=== PATIENT | male | born 1955 | race American Indian/Alaskan Native ===

== ENCOUNTER 2018-12-18 12:50 | Observation (INO) | payer MEDICARE ==
--- NOTE | 2018-12-11 12:56 | Anesthesia Consultation ---
Anesthesia Consult and Med Hx Date of service: 12/11/18 - Airway Anesthetic Teeth Evaluation: Edentulous ROM Head & Neck: Adequate Mental/Hyoid Distance: Adequate Mallampati Class: Class II Intubation Access Assessment: Probably Good - Pulmonary Exam CTA: Yes - Cardiac Exam Cardiac Exam: RRR - Pre-Operative Health Status ASA Pre-Surgery Classification: ASA3 Proposed Anesthetic Plan: General - Pulmonary Hx Smoking: Yes (STOPPED X 25 YRS) Hx Sleep Apnea: Yes (DX SLEEP APNEA , NO CPAP USE.) - Cardiovascular System Hx Hypertension: No - Endocrine Hx End Stage Renal Disease: Yes (MWF dialysis; plan is to have dialysis day before and labs DOS ) - Hematic Hx Anemia: No - Other Systems Hx Substance Use: Yes (MARIJUANA & COCAINE ABUSE- CLEAN X 26 YRS) - Additional Comments Anesthesia Medical History Comments: no BP/IV on nothing on R side (location of AV fistula)
[~2018-12-18 12:50] MED LIST: GENTAMICIN IV ONE; GENTAMICIN IV SCH; NACL 0.9% IV ONE; NACL 0.9% IV SCH; VANCOMYCIN 1,500 MG in NACL 0.9% 500 ML 500 ML IV ONE; VANCOMYCIN 1,500 MG in NACL 0.9% 500 ML 500 ML IV SCH; VANCOMYCIN/NS 1 GM/250 ML 1 GM/250 ML BAG IV SCH
[2018-12-18 13:55] LABS: Basophils % (Auto) 0.5 % (0.0-1.8); Eosinophils # (Auto) 0.6 K/mm3 (0.0-0.4); Hematocrit 34.3 % (35.5-45.6); Lymphocytes # (Auto) 1.1 K/mm3 (1.2-5.4); Lymphocytes % (Auto) 19.5 % (13.4-35.0); Mean Corpuscular HGB Conc 32 % (32-34); Mean Corpuscular Volume 88 fl (84-94); Monocytes # (Auto) 0.4 K/mm3 (0.0-0.8); Monocytes % (Auto) 6.8 % (0.0-7.3); Platelet Count 245 K/mm3 (140-440); Red Cell Distribution Width 16.1 % (13.2-15.2)
[2018-12-18] MEDS ORDERED: NACL 0.9% IV SCH (14:05)
[2018-12-18 14:06] LABS: Albumin 3.7 g/dL (3.9-5)
[2018-12-18] MEDS ORDERED: NACL 0.9% 1000 ML 1,000 ML ONE (14:18)
[2018-12-18] MEDS ORDERED: SUBLIMAZE ONE (14:35)
[2018-12-18] MEDS ORDERED: XYLOCAINE MPF 2% ONE (14:35)
[2018-12-18] MEDS ORDERED: DIPRIVAN 10 MG/ML IV ONE (14:36)
[2018-12-18] MEDS ORDERED: NEOSPORIN GU IR ONE (16:15)
[2018-12-18] MEDS ORDERED: DILAUDID ONE ×2 (16:30→18:00)
[2018-12-18] MEDS ORDERED: NEO SYNEPHRINE/NS Syringe(OR USE) IV ONE (16:38)
[2018-12-18] MEDS ORDERED: ZOFRAN IV PRN (17:10)
[2018-12-18] MEDS ORDERED: NORCO 5/325 PO PRN (17:10)
[2018-12-18] MEDS ORDERED: NARCAN 0.4 MG/1 ML IV PRN (17:10)
--- NOTE | 2018-12-18 17:10 | Short Stay Summary ---
Short Stay Documentation Date of service: 12/18/18 - History H&P: obtained from office - Allergies and Medications Current Medications: Allergies lisinopril Allergy (Verified 12/09/18 15:58) Swelling Home Medications Medication Instructions Recorded Confirmed Last Taken Type Aspirin [Aspir-Low] 81 mg PO DAILY 12/09/18 12/09/18 Unknown History Calcium Acetate [Phoslo] 2 tab PO TID 12/09/18 12/18/18 12/17/18 History Esomeprazole Magnesium [Nexium 20 mg PO DAILY 12/09/18 12/09/18 Unknown History 24Hr] Insulin Detemir [Levemir VIAL] 36 unit SQ QHS 12/09/18 12/18/18 12/17/18 History Multivit-Mins/Iron/Folic/Lycop 1 each PO DAILY 12/09/18 12/09/18 Unknown History [Centrum Men's Tablet] Active Medications Vancomycin HCl 1,500 mg/ (Sodium Chloride) 530 mls @ 333.333 mls/hr IV PREOP JOSE Stop: 12/18/18 23:59 Last Admin: 12/18/18 14:30 Dose: 333.333 mls/hr Documented by: Gentamicin Sulfate 450 mg/ (Sodium Chloride) 111.25 mls @ 200 mls/hr IV PREOP JOSE Stop: 12/18/18 23:59 Sodium Chloride (Nacl 0.9%) 1,000 ml IV DIRECT JOSE Stop: 12/18/18 23:59 - Brief post op/procedure progress note Date of procedure: 12/18/18 Pre-op diagnosis: ed Post-op diagnosis: same Procedure: ipp (18cm, 3cm RTE), scrotaplasty Anesthesia: GETA Surgeon: TARSHA CAMACHO Estimated blood loss: minimal Pathology: list (scrotal skin) Specimen disposition: to lab Condition: stable - Hospital course Hospital course: norco 10mg, bactrim, postop info on chart removed dunn & wrap home - Disposition Condition at discharge: Stable Short Stay Discharge Plan Follow up with: PRIMARY CARE, [Primary Care Provider] - 7 Days
[2018-12-18] MEDS ORDERED: D50W (25GM) Syringe IV PRN (17:15)
--- NOTE | 2018-12-18 17:49 | Operative Report ---
PREOPERATIVE DIAGNOSIS: Erectile dysfunction. POSTOPERATIVE DIAGNOSIS: Erectile dysfunction, redundant scrotal skin. PROCEDURE: Insertion of inflatable penile prosthesis (InhibiZone 18 cm with 3 cm rear tip artificial fly tier scrotoplasty). SURGEON: James Mascorro MD. ANESTHESIA: General. SENIOR SALES OPERATIONS ANALYST: Nikole Moreno. ESTIMATED BLOOD LOSS: Minimal. FLUIDS: Crystalloid. COMPLICATIONS: No complications. INDICATIONS: This patient is a 62-year-old gentleman seen in the office for erectile dysfunction. He is referred by Dr. Huy Sy. He has a history of renal insufficiency and on hemodialysis, sees Dr. Pato Sawyer, his waistline joiner Dr. Rj Gross. We discussed options at length. The patient agreed to proceed with surgical intervention. Risks, benefits, and complications were explained. He was cleared by his physicians. We agreed to proceed with surgical intervention. DESCRIPTION OF PROCEDURE: The patient was taken to the operative suite, placed in a supine position. After adequate general anesthesia, he was prepped and draped in a sterile fashion. Fonseca catheter was placed on the operative field with minimal fluid output. [place] Tox[place] retractor was used, transscrotal incision was made with the Bovie. Sharp dissection was taken down to the corporal bodies. A 2-0 Vicryl stay stitch was placed in the corporal bodies, corporotomies were made bilaterally. Dilation of the proximal and distal shaft was performed up to 12 mm with Hegar sounds dilation and measurements were consistent with a 21 cm in length and therefore an 18 cm InhibiZone device was prepped as well as 100 mL momentary squeeze reservoir. The reservoir was prepped and placed in the retropubic space via the right external ring, 100 mL was placed into the reservoir. A 10 mL back pressure was initially noted and it decreased over time. The cylinders were prepped and placed in the corporal bodies with the aid of a Zachery needle. Corporotomies were closed with 2-0 Vicryl in a running fashion. The quick click connection system was used to close the system, inflation and deflation was performed without difficulty. He did have some fibrosis of his corporal bodies. Adequate erection could be appreciated. Copious irrigation was performed. Adequate hemostasis achieved. The pump was placed in the dependent portion of the scrotum. Pursestring suture using 2-0 Vicryl in the dartos layer and then a running stitch was closed. Redundant scrotal skin was excised and sent for routine pathologic evaluation. The skin was then closed with 2-0 Vicryl in interrupted fashion. Collodion Xeroform gauze and a mummy wrap was placed. The patient tolerated the procedure well and was extubated and taken to recovery room. JOB# [id number] Divya/JUAN MANUEL
[2018-12-18] MEDS ORDERED: DILAUDID IV PRN (17:56)
[2018-12-18] MEDS ORDERED: NACL 0.45% 1000 ML 1,000 ML IV SCH (18:00)
[2018-12-18] MEDS: ANCEF/NS 1 GM/50 ML 1 GM/50 ML BAG IV SCH (20:02)
[2018-12-18] MEDS: MORPHINE IV PRN (20:35)
[2018-12-18] MEDS ORDERED: LANTUS SUB-Q SCH (22:00)
[2018-12-18] MEDS ORDERED: INSULIN DETEMIR 36 UNIT SQ SCH (22:00)
[2018-12-18] MEDS: PHOSLO PO SCH (22:41)
[2018-12-18] MEDS: HumuLIN R SUB-Q SCH (22:44)
[2018-12-19] MEDS: HumuLIN R SUB-Q SCH (01:05)
[2018-12-19] MEDS: ANCEF/NS 1 GM/50 ML 1 GM/50 ML BAG IV SCH (01:09)
--- NOTE | 2018-12-19 05:56 | Consultation ---
History of Present Illness - Reason for Consult Consult date: 12/18/18 Medical management Requesting physician: TARSHA CAMACHO - History of Present Illness S/p IPP (18cm, 3cm RTE), scrotaplasty Postop doing well Past History Past Medical History: diabetes, dialysis, ESRD, GERD Past Surgical History: Other (AV fistula IPP scrotoplasty) Social history: no significant social history, lives with family, full code Family history: hypertension Medications and Allergies Allergies Allergy/AdvReac Type Severity Reaction Status Date / Time lisinopril Allergy Swelling Verified 12/09/18 15:58 Home Medications Medication Instructions Recorded Confirmed Last Taken Type Aspirin [Aspir-Low] 81 mg PO DAILY 12/09/18 12/09/18 Unknown History Calcium Acetate [Phoslo] 2 tab PO TID 12/09/18 12/18/18 12/17/18 History Esomeprazole Magnesium [Nexium 20 mg PO DAILY 12/09/18 12/09/18 Unknown History 24Hr] Insulin Detemir [Levemir VIAL] 36 unit SQ QHS 12/09/18 12/18/18 12/17/18 History Multivit-Mins/Iron/Folic/Lycop 1 each PO DAILY 12/09/18 12/09/18 Unknown History [Centrum Men's Tablet] Active Meds: Active Medications Acetaminophen/Hydrocodone Bitart ([place] 5/325) 2 each PO Q6H PRN PRN Reason: Pain, Moderate (4-6) Last Admin: 12/18/18 22:59 Dose: 2 each Documented by: Calcium Acetate (Phoslo) 1,334 mg PO TID [facility] Last Admin: 12/18/18 22:41 Dose: 1,334 mg Documented by: Dextrose (D50w (25gm) Syringe) 50 ml IV PRN PRN PRN Reason: Hypoglycemia Sodium Chloride (Nacl 0.45% 1000 Ml) 1,000 mls @ 75 mls/hr IV DIRECT [facility] Insulin Glargine (Lantus) 36 units SUB-Q QHS [facility] Last Admin: 12/18/18 22:46 Dose: 36 units Documented by: Insulin Human Regular (Humulin R) 0 units SUB-Q Q6HR [facility]; Protocol Last Admin: 12/19/18 01:05 Dose: Not Given Documented by: Morphine Sulfate (Morphine) 2 mg IV Q4H PRN PRN Reason: Pain, Moderate (4-6) Last Admin: 12/18/18 20:35 Dose: 2 mg Documented by: Multivitamins/Minerals (Theragran-M Tab) 1 each PO QDAY [facility] Naloxone HCl (Narcan 0.4 Mg/1 Ml) 0.1 mg IV Q2MIN PRN PRN Reason: Res Rate </= 8 or 02 SAT < 92% Ondansetron HCl (Zofran) 4 mg IV Q8H PRN PRN Reason: N/V unrelieved by Reglan Last Admin: 12/18/18 20:36 Dose: 4 mg Documented by: Pantoprazole Sodium (Protonix) 20 mg PO QDAY JOSE Review of Systems All systems: negative Exam - Constitutional Vitals: Temp Pulse Resp BP Pulse Ox 98.1 F 83 20 157/55 100 12/19/18 03:40 12/19/18 03:40 12/19/18 03:40 12/19/18 03:40 12/19/18 03:40 General appearance: Present: no acute distress, well-nourished - EENT Eyes: Present: PERRL ENT: hearing intact, clear oral mucosa - Neck Neck: Present: supple, normal ROM - Respiratory Respiratory effort: normal Respiratory: bilateral: CTA - Cardiovascular Heart rate: 78 Rhythm: regular Heart Sounds: Present: S1 & S2. Absent: rub, click - Extremities Extremities: no ischemia, pulses intact, pulses symmetrical, No edema Peripheral Pulses: within normal limits - Abdominal General gastrointestinal: Present: soft, non-tender, non-distended, normal bowel sounds Male genitourinary: Present: normal - Integumentary Integumentary: Present: clear, warm, dry - Musculoskeletal Musculoskeletal: gait normal, strength equal bilaterally - Psychiatric Psychiatric: appropriate mood/affect, intact judgment & insight - Neurologic Neurologic: CNII-XII intact, moves all extremities - Allied Health Allied health notes reviewed: nursing, case management Results - Labs CBC & Chem 7: 12/18/18 13:20 12/18/18 13:20 Labs: Abnormal lab results 12/18/18 12/18/18 12/18/18 Range/Units 13:20 13:20 13:49 Hgb 11.0 L (11.8-15.2) gm/dl Hct 34.3 L (35.5-45.6) % RDW 16.1 H (13.2-15.2) % Eos % (Auto) 12.0 H (0.0-4.3) % Lymph # 1.1 L (1.2-5.4) K/mm3 Eos # 0.6 H (0.0-0.4) K/mm3 Potassium 5.5 H (3.6-5.0) mmol/L BUN 48 H (9-20) mg/dL Creatinine 13.0 H (0.8-1.5) mg/dL Glucose 130 H (75-100) mg/dL POC Glucose 126 H (70-105) Calcium 8.0 L (8.4-10.2) mg/dL ALT 6 L (7-56) units/L Alkaline Phosphatase 167 H (35-129) units/L Albumin 3.7 L (3.9-5) g/dL 12/18/18 12/18/18 Range/Units 17:49 22:39 Hgb (11.8-15.2) gm/dl Hct (35.5-45.6) % RDW (13.2-15.2) % Eos % (Auto) (0.0-4.3) % Lymph # (1.2-5.4) K/mm3 Eos # (0.0-0.4) K/mm3 Potassium (3.6-5.0) mmol/L BUN (9-20) mg/dL Creatinine (0.8-1.5) mg/dL Glucose (75-100) mg/dL POC Glucose 121 H 142 H (70-105) Calcium (8.4-10.2) mg/dL ALT (7-56) units/L Alkaline Phosphatase (35-129) units/L Albumin (3.9-5) g/dL Assessment and Plan - Patient Problems (1) Status post surgery Current Visit: Yes Status: Acute Plan to address problem: S/p IPP Post op doing well. (2) ESRD needing dialysis Current Visit: Yes Status: Chronic Plan to address problem: Nephrology consulted (3) Diabetes mellitus, insulin dependent (IDDM), controlled Current Visit: Yes Status: Chronic Plan to address problem: COnt INsulin and coverage Check A1c (4) GERD (gastroesophageal reflux disease) Current Visit: Yes Status: Chronic Qualifiers: Esophagitis presence: without esophagitis Qualified Code(s): K21.9 - Gastro-esophageal reflux disease without esophagitis Plan to address problem: On PPi's (5) DVT prophylaxis Current Visit: Yes Status: Acute Plan to address problem: SCD's and GI prophylaxis
[2018-12-19] MEDS ORDERED: NACL 0.9% 100 ML IV PRN (09:54)
--- NOTE | 2018-12-19 09:54 | Consultation ---
History of Present Illness - Reason for Consult Consult date: 12/19/18 end stage renal disease, hyperkalemia - History of Present Illness The patient is a 62 YO male with history significant for Morbid obesity, DM type 2, HTN, GERD and ESRD on hemodialysis who admitted after he underwent IPP and scrotaplasty. He denies any complaint at this time. Patient usually gets hemodialysis on MWF schedule and he was last dialyzed 3 days ago. Patient denies any fever, chills, cp, sob, cough, leg swelling, dizziness, syncope or weakness. Nephrology was consulted for ESRD management. Past History Past Medical History: diabetes, dialysis, ESRD, GERD, hypertension, other (Obesity) Past Surgical History: Other (AV fistula IPP scrotoplasty) Social history: no significant social history, lives with family, full code Family history: hypertension Medications and Allergies Allergies Allergy/AdvReac Type Severity Reaction Status Date / Time lisinopril Allergy Swelling Verified 12/09/18 15:58 Home Medications Medication Instructions Recorded Confirmed Last Taken Type Aspirin [Aspir-Low] 81 mg PO DAILY 12/09/18 12/09/18 Unknown History Calcium Acetate [Phoslo] 2 tab PO TID 12/09/18 12/18/18 12/17/18 History Esomeprazole Magnesium [Nexium 20 mg PO DAILY 12/09/18 12/09/18 Unknown History 24Hr] Insulin Detemir [Levemir VIAL] 36 unit SQ QHS 12/09/18 12/18/18 12/17/18 History Multivit-Mins/Iron/Folic/Lycop 1 each PO DAILY 12/09/18 12/09/18 Unknown History [Centrum Men's Tablet] Active Meds: Active Medications Acetaminophen/Hydrocodone Bitart ([place] 5/325) 2 each PO Q6H PRN PRN Reason: Pain, Moderate (4-6) Last Admin: 12/18/18 22:59 Dose: 2 each Documented by: Calcium Acetate (Phoslo) 1,334 mg PO TID JOSE Last Admin: 12/18/18 22:41 Dose: 1,334 mg Documented by: Dextrose (D50w (25gm) Syringe) 50 ml IV PRN PRN PRN Reason: Hypoglycemia Sodium Chloride (Nacl 0.45% 1000 Ml) 1,000 mls @ 75 mls/hr IV DIRECT JOSE Last Admin: 12/19/18 06:34 Dose: 75 mls/hr Documented by: Insulin Glargine (Lantus) 36 units SUB-Q QHS [facility] Last Admin: 12/18/18 22:46 Dose: 36 units Documented by: Insulin Human Lispro (Humalog) 0 unit SUB-Q ACHS [facility]; Protocol Morphine Sulfate (Morphine) 2 mg IV Q4H PRN PRN Reason: Pain, Moderate (4-6) Last Admin: 12/18/18 20:35 Dose: 2 mg Documented by: Multivitamins/Minerals (Theragran-M Tab) 1 each PO QDAY [facility] Naloxone HCl (Narcan 0.4 Mg/1 Ml) 0.1 mg IV Q2MIN PRN PRN Reason: Res Rate </= 8 or 02 SAT < 92% Ondansetron HCl (Zofran) 4 mg IV Q8H PRN PRN Reason: N/V unrelieved by Reglan Last Admin: 12/18/18 20:36 Dose: 4 mg Documented by: Pantoprazole Sodium (Protonix) 20 mg PO QDAY [facility] Review of Systems Constitutional: no weight loss, no weight gain, no fever, no chills, no anorexia, no weakness, no poor appetite Cardiovascular: high blood pressure, no chest pain, no orthopnea, no palpitations, no edema, no syncope, no lightheadedness, no shortness of breath, no leg edema Respiratory: no cough, no hemoptysis, no shortness of breath Gastrointestinal: no abdominal pain, no nausea, no vomiting, no diarrhea Genitourinary Male: no dysuria, no hematuria Rectal: no bleeding Integumentary: no rash, no wounds, no jaundice Neurological: no paralysis, no weakness, no change in speech, no change in mentation, no confusion, no memory loss Exam - Vital Signs Vital signs: Vital Signs Temp Pulse Resp BP Pulse Ox 98.7 F 86 20 95/58 97 12/11/18 12:14 12/11/18 12:14 12/11/18 12:14 12/11/18 12:14 12/11/18 12:14 - General Appearance General appearance: well-developed, well-nourished, appears stated age, obese, other (not in distress) EENT: ATNC, PERRL, mucous membranes moist, hearing intact, vision intact Neck: Present: neck supple, trachea midline Respiratory: Clear to Ascultation Heart: regular, S1S2, no murmurs Gastrointestinal: Present: normoactive bowel sounds, obese, other (penile and scrotal area dressing noted, Fonseca catheter). Absent: tenderness, distended Integumentary: no rash Neurologic: no focal deficit, no asterixis, alert and oriented x3 Musculoskeletal: Present: other (Right arm AVF) Results - Lab Results 12/18/18 13:20 12/18/18 13:20 Most recent lab results Calcium 8.0 mg/dL (8.4-10.2) L 12/18/18 13:20 Assessment and Plan 1. ESRD: Patient's outpatient schedule is MWF. He missed hemodialysis yesterday. HD today, orders placed. 2. FEN: Hyperkalemia, HD today. Continue Phoslo. 3. DM type 2. 4. Anemia: Monitor. 5. S/p IPP.
[2018-12-19] MEDS ORDERED: PROTONIX PO SCH (10:00)
[2018-12-19] MEDS ORDERED: NON-FORMULARY (Esomeprazole Magnesium [Nexium 24hr] 20 MG) PO SCH (10:00)
[2018-12-19] MEDS ORDERED: IRON PO SCH (10:00)
[2018-12-19] MEDS ORDERED: FOLIC PO SCH (10:00)
[2018-12-19] MEDS ORDERED: LYCOP PO SCH (10:00)
[2018-12-19] MEDS ORDERED: THERAGRAN-M Tab PO SCH (10:00)
[2018-12-19] MEDS ORDERED: MULTIVIT MINS PO SCH (10:00)
[2018-12-19] MEDS: HumaLOG SUB-Q SCH ×3 (10:27→16:15)
[2018-12-19] MEDS: PHOSLO PO SCH ×3 (10:45→17:58)
[2018-12-19] MEDS: MORPHINE IV PRN (11:12)
--- NOTE | 2018-12-19 13:28 | Progress Note ---
Assessment and Plan Assessment and plan: Patient is a 62 yo man with a history of IDDM, ESRD on HD mwf and GERD who presented to outpatient surgery center at [facility] for IPP and scrotaplasty. Hospitalist consulted for DM management. Patient is on 36 units of Levemir at bedside. s/p IPP per Urology IDDM: takes Levemir 36 units at bedtime,ok to resume ESRD: HD today, Nephrology following. Hyperkalemia: treat with HD ok to d/c home from [facility] History Interval history: Patient was seen and examined. Follow-up on current diagnosis. Overnight uneventful. Patient denies any chest pain, shortness breath, nausea/vomiting or severe headaches. Imaging, nursing note, chart, labs and old chart reviewed. Discussed with patient. Hospitalist Physical - Physical exam Narrative exam: Gen: WDWN, NAD, Awake, Alert, Orientated HEENT: NCAT, EOMI, PERRL, OP Clear Neck: supple, no adenopathy, no thyromegaly, no JVD CVS/Heart: RRR, normal S1S2, pulses present bilaterally Chest/Lungs: CTA B, Symmetrical chest expansion, good air entry bilaterally GI/Abdomen: soft, NTND, good bowel sounds, no guarding or rebound /Bladder: no suprapubic tenderness, no CVA or paraspinal tenderness Extermity/Skin: no c/c/e, no obvious rash MSK: FROM x 4 Neuro: CN 2-12 grossly intact, no new focal deficits Psych: calm - Constitutional Vitals: Temp Pulse Resp BP Pulse Ox 98.1 F 83 20 157/55 100 12/19/18 03:40 12/19/18 03:40 12/19/18 03:40 12/19/18 03:40 12/19/18 08:48 General appearance: Present: no acute distress, well-nourished Results - Labs CBC & Chem 7: 12/18/18 13:20 12/18/18 13:20 Labs: Laboratory Last Values WBC 5.4 K/mm3 (4.5-11.0) 12/18/18 13:20 RBC 3.90 M/mm3 (3.65-5.03) 12/18/18 13:20 Hgb 11.0 gm/dl (11.8-15.2) L 12/18/18 13:20 Hct 34.3 % (35.5-45.6) L 12/18/18 13:20 MCV 88 fl (84-94) 12/18/18 13:20 MCH 28 pg (28-32) 12/18/18 13:20 MCHC 32 % (32-34) 12/18/18 13:20 RDW 16.1 % (13.2-15.2) H 12/18/18 13:20 Plt Count 245 K/mm3 (140-440) 12/18/18 13:20 Lymph % (Auto) 19.5 % (13.4-35.0) 12/18/18 13:20 [place] % (Auto) 6.8 % (0.0-7.3) 12/18/18 13:20 Eos % (Auto) 12.0 % (0.0-4.3) H 12/18/18 13:20 Baso % (Auto) 0.5 % (0.0-1.8) 12/18/18 13:20 Lymph # 1.1 K/mm3 (1.2-5.4) L 12/18/18 13:20 [place] # 0.4 K/mm3 (0.0-0.8) 12/18/18 13:20 Eos # 0.6 K/mm3 (0.0-0.4) H 12/18/18 13:20 Baso # 0.0 K/mm3 (0.0-0.1) 12/18/18 13:20 Seg Neutrophils % 61.2 % (40.0-70.0) 12/18/18 13:20 Seg Neutrophils # 3.3 K/mm3 (1.8-7.7) 12/18/18 13:20 Sodium 141 mmol/L (137-145) 12/18/18 13:20 Potassium 5.5 mmol/L (3.6-5.0) H 12/18/18 13:20 Chloride 100.8 mmol/L (98-107) 12/18/18 13:20 Carbon Dioxide 24 mmol/L (22-30) 12/18/18 13:20 Anion Gap 22 mmol/L 12/18/18 13:20 BUN 48 mg/dL (9-20) H 12/18/18 13:20 Creatinine 13.0 mg/dL (0.8-1.5) H 12/18/18 13:20 Estimated GFR 5 ml/min 12/18/18 13:20 BUN/Creatinine Ratio 4 % 12/18/18 13:20 Glucose 130 mg/dL (75-100) H 12/18/18 13:20 POC Glucose 142 (70-105) H 12/18/18 22:39 Calcium 8.0 mg/dL (8.4-10.2) L 12/18/18 13:20 Total Bilirubin 0.30 mg/dL (0.1-1.2) 12/18/18 13:20 AST 6 units/L (5-40) 12/18/18 13:20 ALT 6 units/L (7-56) L 12/18/18 13:20 Alkaline Phosphatase 167 units/L (35-129) H 12/18/18 13:20 Total Protein 7.5 g/dL (6.3-8.2) 12/18/18 13:20 Albumin 3.7 g/dL (3.9-5) L 12/18/18 13:20 Albumin/Globulin Ratio 1.0 % 12/18/18 13:20 Active Medications - Current Medications Current Medications: Generic Name Dose Route Start Last Admin Trade Name Freq PRN Reason Stop Dose Admin Acetaminophen/Hydrocodone Bitart 2 each 12/18/18 17:10 12/18/18 22:59 [place] 5/325 PO 2 each Q6H PRN Administration Pain, Moderate (4-6) Calcium Acetate 1,334 mg 12/19/18 12:00 12/19/18 11:12 Phoslo PO 1,334 mg TIDWM JOSE Administration Dextrose 50 ml 12/18/18 17:15 D50w (25gm) Syringe IV PRN PRN Hypoglycemia Sodium Chloride 1,000 mls @ 75 mls/hr 12/18/18 18:00 12/19/18 06:34 Nacl 0.45% 1000 Ml IV 75 mls/hr DIRECT JOSE Administration Sodium Chloride 100 mls @ 999 mls/hr 12/19/18 09:54 Nacl 0.9% IV LEMUEL PRN Hypotension Insulin Glargine 36 units 12/18/18 22:00 12/18/18 22:46 Lantus SUB-Q 36 units QHS JOSE Administration Insulin Human Lispro 0 unit 04/25/19 07:30 12/19/18 12:34 Humalog SUB-Q Not Given ACHS JOSE Protocol Morphine Sulfate 2 mg 12/18/18 17:10 12/19/18 11:12 Morphine IV 2 mg Q4H PRN Administration Pain, Moderate (4-6) Multivitamins/Minerals 1 each 12/19/18 10:00 12/19/18 11:12 Theragran-M Tab PO 1 each QDAY JOSE Administration Naloxone HCl 0.1 mg 12/18/18 17:10 Narcan 0.4 Mg/1 Ml IV Q2MIN PRN Res Rate </= 8 or 02 SAT < 92% Ondansetron HCl 4 mg 12/18/18 17:10 12/18/18 20:36 Zofran IV 4 mg Q8H PRN Administration N/V unrelieved by Radu Pantoprazole Sodium 20 mg 12/19/18 10:00 12/19/18 11:12 Protonix PO 20 mg QDAY JOSE Administration
[2018-12-19 15:19] LABS: Hepatitis C Virus Antibody Non-Reactive (NonReactive)
[2018-12-19 16:17] LABS: Hepatitis B Surface Antigen Non-Reactive (Negative)
[2018-12-19 17:30] VITALS: BP 162/81
== END 2018-12-19 19:10 | disposition home or self-care (01) ==
LOC: OR 12:50 → 3B-SURG 17:10
PROVIDERS: ADMIT Urology; ATTEND Urology
DX: N52.9 Male erectile dysfunction, unspecified (principal); N18.6 End stage renal disease; E11.22 Type 2 diabetes mellitus with diabetic chronic kidney disease; K21.9 Gastro-esophageal reflux disease without esophagitis
CPT/HCPCS: 36415; 54401; 80053; 80074; 82962; 85025; 88305; 96365; 96366; 96367; 96372; 96375; 96376; C1813; G0257; G0378; J0690; J1170; J1580; J2270; J2370; J2405; J2704; J3010; J3370; J7030; J7040; J1815

== ENCOUNTER 2020-11-11 17:53 | Emergency (ER) | payer MEDICARE ==
[2020-11-11 18:06] VITALS: BP 118/79
--- NOTE | 2020-11-11 18:09 | Event Note ---
ED Screening Note Date of service: 11/11/20 Time: 18:07 ED Screening Note: Patient complains of upper abdominal pain and nausea and vomiting x2 days History of cholecystectomy Denies stool changes or fever This initial assessment/diagnostic orders/clinical plan/treatment(s) is/are subject to change based on patients health status, clinical progression and re- assessment by fellow clinical providers in the ED. Further treatment and workup at subsequent clinical providers discretion. Patient/guardian urged not to elope from the ED as their condition may be serious if not clinically assessed and managed. Initial orders include: Labs EKG
[2020-11-11 19:31] LABS: Alanine Aminotransferase 9 units/L (7-56); BUN/Creatinine Ratio 6; Blood Urea Nitrogen 79 mg/dL (9-20)
[2020-11-11] MEDS ORDERED: SODIUM POLYSTYRENE 15 GM/60 ML ORAL LIQD PO ONE (19:46)
[2020-11-11] MEDS ORDERED: SODIUM CHLORIDE 0.9% 500 ML 500 ML IV ONE (19:46)
[2020-11-11 19:49] LABS: HDL Cholesterol 29 mg/dL (40-59); LDL Cholesterol,Direct 132 mg/dL (50-130)
[2020-11-11] MEDS ORDERED: ONDANSETRON 4 MG/2 ML INJ IV ONE (19:49)
--- NOTE | 2020-11-11 19:54 | Emergency Department Report ---
ED Abdominal Pain HPI - General Chief Complaint: Abdominal Pain Stated Complaint: NAUSEA Time Seen by Provider: 11/11/20 18:07 Source: patient Mode of arrival: Ambulatory Limitations: No Limitations - History of Present Illness Initial Comments: Patient is a 64 y/o -[place] male history of hypertension, diabetes, end-stage renal disease, on dialysis Sunday, cholecystectomy 1 year ago. Patient complains of abdominal pain nausea vomiting with abdominal bloating, patient advised adherence to dialysis Sunday and Sunday next dialysis is in the a.m. Abdominal pain described as 4/10 cramping aching radiating to right upper quadrant with 2 episodes of nausea vomiting today. Is been no fever, chills, cough, back pain, dizziness no diaphoresis or, headache. Patient does endorse mild constipation requiring occasional laxative or stool softener. Last nausea vomiting 3 hours ago. Symptoms are exacerbated by nothin g, symptoms are relieved by nothing. MD Complaint: abdominal pain Severity scale (0 -10): 8 - Related Data Home Medications Medication Instructions Recorded Confirmed Last Taken Aspirin [Aspir-Low] 81 mg PO DAILY 12/09/18 12/09/18 Unknown Calcium Acetate [Phoslo] 2 tab PO TID 12/09/18 12/18/18 12/17/18 Esomeprazole Magnesium [Nexium 20 mg PO DAILY 12/09/18 12/09/18 Unknown 24Hr] Insulin Detemir [Levemir VIAL] 36 unit SQ QHS 12/09/18 12/18/18 12/17/18 Multivit-Mins/Iron/Folic/Lycop 1 each PO DAILY 12/09/18 12/09/18 Unknown [Centrum Men's Tablet] Previous Rx's Medication Instructions Recorded Last Taken Type Acetaminophen [Acetaminophen TAB] 1,000 mg PO Q6HR PRN #30 tablet 11/12/20 Unknown Rx Azithromycin 500 mg PO DAILY #5 tablet 11/12/20 Unknown Rx Allergies Allergy/AdvReac Type Severity Reaction Status Date / Time lisinopril Allergy Swelling Verified 11/11/20 18:02 ED Review of Systems ROS: Stated complaint: NAUSEA Other details as noted in HPI Constitutional: denies: chills, fever Eyes: denies: eye pain, eye discharge, vision change ENT: denies: ear pain, throat pain Respiratory: denies: cough, shortness of breath, wheezing Cardiovascular: denies: chest pain, palpitations Endocrine: no symptoms reported Gastrointestinal: abdominal pain, nausea, vomiting, constipation. denies: melena Genitourinary: denies: urgency, dysuria Musculoskeletal: denies: back pain, joint swelling, arthralgia Skin: denies: rash, lesions Neurological: denies: headache, weakness, paresthesias Psychiatric: denies: anxiety, depression Hematological/Lymphatic: as per HPI ED Past Medical Hx - Past Medical History Hx Hypertension: No Hx Congestive Heart Failure: Yes (2013- RESOLVED) Hx Diabetes: Yes Hx GERD: Yes (TAKES DAILY MEDS) Hx HIV: No - Surgical History Hx Cholecystectomy: Yes - Social History Smoking Status: Never Smoker - Medications Home Medications: Home Medications Medication Instructions Recorded Confirmed Last Taken Type Aspirin [Aspir-Low] 81 mg PO DAILY 12/09/18 12/09/18 Unknown History Calcium Acetate [Phoslo] 2 tab PO TID 12/09/18 12/18/18 12/17/18 History Esomeprazole Magnesium [Nexium 20 mg PO DAILY 12/09/18 12/09/18 Unknown History 24Hr] Insulin Detemir [Levemir VIAL] 36 unit SQ QHS 12/09/18 12/18/18 12/17/18 History Multivit-Mins/Iron/Folic/Lycop 1 each PO DAILY 12/09/18 12/09/18 Unknown History [Centrum Men's Tablet] Acetaminophen [Acetaminophen TAB] 1,000 mg PO Q6HR PRN #30 tablet 11/12/20 Unkn own Rx Azithromycin 500 mg PO DAILY #5 tablet 11/12/20 Unknown Rx ED Physical Exam - General Limitations: No Limitations General appearance: alert, in no apparent distress - Head Head exam: Present: atraumatic, normocephalic - Eye Eye exam: Present: normal appearance, EOMI Pupils: Present: normal accommodation - ENT ENT exam: Present: mucous membranes moist - Neck Neck exam: Present: normal inspection, full ROM. Absent: tenderness - Respiratory Respiratory exam: Present: normal lung sounds bilaterally. Absent: wheezes, rales, rhonchi, stridor, chest wall tenderness - Cardiovascular Cardiovascular Exam: Present: regular rate, normal rhythm, normal heart sounds. Absent: systolic murmur, diastolic murmur, rubs, gallop - GI/Abdominal GI/Abdominal exam: Present: distended (mildly), tenderness (RUQ ), normal bowel sounds. Absent: guarding, rebound, rigid, bruit, hernia - Expanded GI/Abdominal Exam Expanded GI/Abdominal exam: Absent: psoas sign, obturator sign, heel tap sign, Simmons's sign, Rovsing's sign, tenderness at Mcburney's Point, ascites - Rectal Rectal exam: Present: deferred - Extremities Exam Extremities exam: Present: normal inspection - Back Exam Back exam: Present: normal inspection, full ROM. Absent: tenderness, CVA tenderness (R), CVA tenderness (L) - Neurological Exam Neurological exam: Present: alert, oriented X3, CN II-XII intact, normal gait - Psychiatric Psychiatric exam: Present: normal affect, normal mood - Skin Skin exam: Present: warm, dry, intact, normal color. Absent: rash ED Course Vital Signs 11/11/20 18:05 Temperature 98.8 F Pulse Rate 79 Respiratory 20 Rate Blood Pressure 118/79 [Right] O2 Sat by Pulse 98 Oximetry ED Medical Decision Making - Lab Data Result diagrams: 11/11/20 21:17 11/11/20 23:14 Labs 11/11/20 11/11/20 11/11/20 18:41 21:17 23:14 WBC 9.1 RBC 3.96 Hgb 11.2 L Hct 34.8 L MCV 88 MCH 28 MCHC 32 RDW 16.2 H Plt Count 264 Lymph % (Auto) [place] Header [place] % (Auto) Cloth Bale Header Eos % (Auto) [place] Header Baso % (Auto) Cloth [place]ale Header Lymph # (Auto) Cloth [place] Header [place] # (Auto) Cloth Bale Header Eos # (Auto) [place] Header Baso # (Auto) [place]oth [place] Header Add Manual Diff Complete Total Counted 100 Seg Neutrophils % Cloth [place] Header Seg Neuts % (Manual) 63.0 Lymphocytes % (Manual) 18.0 Monocytes % (Manual) 12.0 H Eosinophils % (Manual) 6.0 H Basophils % (Manual) 1.0 Nucleated RBC % Not Reportable Seg Neutrophils # Cloth [place]ale Header Seg Neutrophils # Man 5.7 Band Neutrophils # 0.0 Lymphocytes # (Manual) 1.6 Abs React Lymphs (Man) 0.0 Monocytes # (Manual) 1.1 H Eosinophils # (Manual) 0.5 H Basophils # (Manual) 0.1 Metamyelocytes # 0.0 Myelocytes # 0.0 Promyelocytes # 0.0 Blast Cells # 0.0 WBC Morphology Not Reportable Hypersegmented Neuts Not Reportable Hyposegmented Neuts Not Reportable Hypogranular Neuts Not Reportable Smudge Cells Not Reportable Toxic Granulation Not Reportable Toxic Vacuolation Not Reportable Dohle Bodies Not Reportable Pelger-Huet Anomaly Not Reportable Rina Rods Not Reportable Platelet Estimate Not Reportable Clumped Platelets Not Reportable Plt Clumps, EDTA Not Reportable Large Platelets Not Reportable Giant Platelets Not Reportable Platelet Satelliting Not Reportable Plt Morphology Comment Not Reportable RBC Morphology Not Reportable Dimorphic RBCs Not Reportable Polychromasia Not Reportable Hypochromasia Not Reportable Poikilocytosis Not Reportable Anisocytosis Rare Microcytosis Not Reportable Macrocytosis Not Reportable Spherocytes Not Reportable Pappenheimer Bodies Not Reportable Sickle Cells Not Reportable Target Cells Not Reportable Tear Drop Cells Not Reportable Ovalocytes Not Reportable Helmet Cells Not Reportable Lundy-[place] Bodies Not Reportable Woden Rings Not Reportable [place] Cells Not Reportable Bite Cells Not Reportable Crenated Cell Not Reportable Elliptocytes Not Reportable Acanthocytes (Spur) Not Reportable Rouleaux Not Reportable Hemoglobin C Crystals Not Reportable Schistocytes Not Reportable Malaria parasites Not Reportable Christian Bodies Not Reportable Hem Pathologist Commnt No Sodium 136 L Potassium 5.9 H Chloride 94.6 L Carbon Dioxide 19 L Anion Gap 28 BUN 79 H Creatinine 13.8 H Estimated GFR 4 BUN/Creatinine Ratio 6 Glucose 102 H Calcium 10.0 Total Bilirubin 0.40 AST 22 ALT 9 Alkaline Phosphatase 85 Troponin T 0.078 H 0.078 H Total Protein 7.6 Albumin 4.0 Albumin/Globulin Ratio 1.1 Triglycerides 68 Cholesterol 174 LDL Cholesterol Direct 132 H HDL Cholesterol 29 L Cholesterol/HDL Ratio 6.00 Lipase 56 11/11/20 23:14 WBC RBC Hgb Hct MCV MCH MCHC RDW Plt Count Lymph % (Auto) [place] % (Auto) Eos % (Auto) Baso % (Auto) Lymph # (Auto) [place] # (Auto) Eos # (Auto) Baso # (Auto) Add Manual Diff Total Counted Seg Neutrophils % Seg Neuts % (Manual) Lymphocytes % (Manual) Monocytes % (Manual) Eosinophils % (Manual) Basophils % (Manual) Nucleated RBC % Seg Neutrophils # Seg Neutrophils # Man Band Neutrophils # Lymphocytes # (Manual) Abs React Lymphs (Man) Monocytes # (Manual) Eosinophils # (Manual) Basophils # (Manual) Metamyelocytes # Myelocytes # Promyelocytes # Blast Cells # WBC Morphology Hypersegmented Neuts Hyposegmented Neuts Hypogranular Neuts Smudge Cells Toxic Granulation Toxic Vacuolation Dohle Bodies Pelger-Huet Anomaly Rina Rods Platelet Estimate Clumped Platelets Plt Clumps, EDTA Large Platelets Giant Platelets Platelet Satelliting Plt Morphology Comment RBC Morphology Dimorphic RBCs Polychromasia Hypochromasia Poikilocytosis Anisocytosis Microcytosis Macrocytosis Spherocytes Pappenheimer Bodies Sickle Cells Target Cells Tear Drop Cells Ovalocytes Helmet Cells Lundy-Lookeba Bodies Woden Rings Garrett Cells Bite Cells Crenated Cell Elliptocytes Acanthocytes (Spur) Rouleaux Hemoglobin C Crystals Schistocytes Malaria parasites Christian Bodies Hem Pathologist Commnt Sodium 136 L Potassium 5.1 H Chloride 97.7 L Carbon Dioxide 19 L Anion Gap 24 BUN 80 H Creatinine 14.0 H Estimated GFR 4 BUN/Creatinine Ratio 6 Glucose 100 Calcium 9.1 Total Bilirubin AST ALT Alkaline Phosphatase Troponin T Total Protein Albumin Albumin/Globulin Ratio Triglycerides Cholesterol LDL Cholesterol Direct HDL Cholesterol Cholesterol/HDL Ratio Lipase - EKG Data EKG shows normal: sinus rhythm, axis, intervals, QRS complexes, ST-T waves Rate: normal - EKG Data Interpretation: normal EKG NSR with No STEMI , ekg interp by ed attending. 11/11/20 20:06 - Radiology Data Radiology results: report reviewed, image reviewed INDICATION / CLINICAL INFORMATION: epigastric pain sob. COMPARISON: None available. FINDINGS: SUPPORT DEVICES: None. HEART /PULMONARY VASCULATURE: No significant abnormality. LUNGS / PLEURA: Low lung volumes with streaky opacities within the lungs, most pronounced on lateral view, likely reflecting volume loss. Otherwise, no acute interstitial or airspace disease. No pleural effusion or pneumothorax. ADDITIONAL FINDINGS: No significant additional findings. IMPRESSION: Low lung volumes without definite acute chest process. Signer Name: Adam Bruno MD Signed: 11/11/2020 8:46 PM Workstation Name: [id number] Transcribed By: JS Dictated By: ADAM BRUNO MD Electronically Authenticated By: ADAM BRUNO MD Signed Date/Time: 11/11/202045 DD/ 43 TD/TT: Print CT abdomen pelvis wo con INDICATION: abdominal pain. COMPARISON: None TECHNIQUE: Abdominal and pelvic CT exam performed. All CT scans at this location are performed using CT dose reduction for ALARA by means of automated exposure control. FINDINGS: CT ABDOMEN and PELVIS: Lung Bases: Mild interstitial edema is seen within the lungs. Liver: No significant abnormality. Biliary: Gallbladder is surgically absent. Spleen: No significant abnormality. Pancreas: No significant abnormality. Adrenals: No significant abnormality. Kidneys: Bilateral renal cysts. Renal atrophy. Perinephric stranding is present. Lymphatics: No lymphadenopathy. Vasculature: Large quantity of arterial atherosclerosis. No aneurysm. Bowel: No significant abnormality. Normal appendix. Pelvis: No significant abnormality. Osseous Structures: Diffuse sclerosis of the osseous structures. No aggressive osseous lesion. Additional Findings: Right lower quadrant penile reservoir. IMPRESSION: 1. No acute abnormality of the abdomen or pelvis. 2. 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 Mild interstitial edema in the lungs. Signer Name: Ronnie Rivera MD Signed: 11/11/2020 11:09 PM Workstation Name: [id number] Transcribed By: CS Dictated By: Ronnie Rivera MD Electronically Authenticated By: Ronnie Rivera MD Signed Date/Time: 11/11/202308 DD/ 06 TD/TT: - Medical Decision Making Pain is resolved, there is no chest pain, shortness of breath, nausea vomiting at this time. Heart score 1, Patient is tolerating p.o. intake without symptoms. Chest x-ray noted concerning for mild infiltrate versus decreased air volume, CT abdomen pelvis normal no mass bleed or soft tissue abnormality. Plan DC to home with prescriptions patient will follow up with primary care doctor in 2 to 3 days. Patient verbalized agreement and understanding with discharge plan patient DC'd home in stable condition at this time, Critical care attestation.: If time is entered above; I have spent that time in minutes in the direct care of this critically ill patient, excluding procedure time. ED Disposition Clinical Impression: CAP (community acquired pneumonia) Qualifiers: Laterality: right Lung location: middle lobe of lung Qualified Code(s): J18.9 - Pneumonia, unspecified organism Abdominal pain Qualifiers: Abdominal location: generalized Qualified Code(s): R10.84 - Generalized abdominal pain Disposition: TO HOME OR SELFCARE Is pt being admited?: No Does the pt Need Aspirin: No Condition: Stable Instructions: Bacterial Pneumonia (ED), Community-Acquired Pneumonia, Adult, Abdominal Pain, Adult Additional Instructions: FOLLOW up with Dr Rees for dialysis in am as scheduled, follow up with primary care doctor int 2-3 days, take all medications as scheduled. Prescriptions: Acetaminophen [Acetaminophen TAB] 1,000 mg PO Q6HR PRN #30 tablet PRN Reason: PAIN Azithromycin 500 mg PO DAILY #5 tablet Referrals: PRIMARY CARE, [Primary Care Provider] - 3-5 Days Forms: Work/School Release Form(ED) Time of Disposition: 01:20
--- NOTE | 2020-11-11 20:50 | XRay Report ---
XR chest routine 2V INDICATION / CLINICAL INFORMATION: epigastric pain sob. COMPARISON: None available. FINDINGS: SUPPORT DEVICES: None. HEART /PULMONARY VASCULATURE: No significant abnormality. LUNGS / PLEURA: Low lung volumes with streaky opacities within the lungs, most pronounced on lateral view, likely reflecting volume loss. Otherwise, no acute interstitial or airspace disease. No pleural effusion or pneumothorax. ADDITIONAL FINDINGS: No significant additional findings. IMPRESSION: Low lung volumes without definite acute chest process. Signer Name: David Burno MD Signed: 11/11/2020 8:46 PM Workstation Name: [id number]
[2020-11-11 21:54] LABS: Hematocrit 34.8 % (35.5-45.6); Hemoglobin 11.2 gm/dl (11.8-15.2); Mean Corpuscular HGB Conc 32 % (32-34); Mean Corpuscular Volume 88 fl (84-94); Platelet Count 264 K/mm3 (140-440); Red Blood Count 3.96 M/mm3 (3.65-5.03); Red Cell Distribution Width 16.2 % (13.2-15.2)
[2020-11-11 22:24] LABS: Total Cells Counted 100
[2020-11-11 22:25] LABS: Anisocytosis RARE
--- NOTE | 2020-11-11 23:13 | Cat Scan Report ---
CT abdomen pelvis wo con INDICATION: abdominal pain. COMPARISON: None TECHNIQUE: Abdominal and pelvic CT exam performed. All CT scans at this location are performed using CT dose reduction for ALARA by means of automated exposure control. FINDINGS: CT ABDOMEN and PELVIS: Lung Bases: Mild interstitial edema is seen within the lungs. Liver: No significant abnormality. Biliary: Gallbladder is surgically absent. Spleen: No significant abnormality. Pancreas: No significant abnormality. Adrenals: No significant abnormality. Kidneys: Bilateral renal cysts. Renal atrophy. Perinephric stranding is present. Lymphatics: No lymphadenopathy. Vasculature: Large quantity of arterial atherosclerosis. No aneurysm. Bowel: No significant abnormality. Normal appendix. Pelvis: No significant abnormality. Osseous Structures: Diffuse sclerosis of the osseous structures. No aggressive osseous lesion. Additional Findings: Right lower quadrant penile reservoir. IMPRESSION: 1. No acute abnormality of the abdomen or pelvis. 2. 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 Mild interstitial edema in the lungs . Signer Name: Ronnie Rivera MD Signed: 11/11/2020 11:09 PM Workstation Name: [id number]
[2020-11-12] LABS: Calcium 9.1 mg/dL (8.4-10.2)
[2020-11-12] MEDS ORDERED: cefTRIAXone/NS 1 GM/50 ML 1 GM/50 ML BAG IV ONE (01:13)
--- NOTE | 2020-11-12 09:49 | Electrocardiograph Report ---
[facility] Test Date: 2020-11-11 Test Time: 18:32:52 Pat Name: JOSE LUIS SMITH JR Department: Room: Gender: M Java Project Manager: JAMIL : 1955 Requested By: HANNAH ESPINOZA Order Number: [id number] Reading MD: Rome Warren Measurements Intervals [place] Rate: 90 P: -5 [place]: 172 QRS: 16 QRSD: 91 T: 69 QT: 370 QTc: 453 Interpretive Statements Sinus rhythm No previous ECG available for comparison Electronically Signed On 11-12-2020 6:49:03 PDT by Rome Warren
== END 2020-11-12 02:10 | disposition home or self-care (01) ==
LOC: ED 17:53
DX: J18.9 Pneumonia, unspecified organism (principal); R10.11 Right upper quadrant pain; I50.9 Heart failure, unspecified; E11.9 Type 2 diabetes mellitus without complications; K21.9 Gastro-esophageal reflux disease without esophagitis; Z90.49 Acquired absence of other specified parts of digestive tract; Z79.4 Long term (current) use of insulin; Z79.899 Other long term (current) drug therapy; Z88.8 Allergy status to other drugs, medicaments and biological substances
CPT/HCPCS: 36415; 71046; 74176; 80048; 80053; 80061; 83690; 84484; 85007; 85025; 93005; 96361; 96365; 96375; 99285; J0696; J2405; J7040